=== PATIENT | female | born 1955 | race Caucasian/White ===

== ENCOUNTER 2018-11-28 11:39 | Emergency (ER) | payer OTHER ==
[~2018-11-28] VITALS: Ht 157.5 cm; Wt 70.3 kg
[2018-11-28] MEDS ORDERED: LISINOPRIL20 MG (11:50)
== END 2018-11-28 17:42 | disposition home or self-care (01) ==
LOC: ER 11:39
DX: M25.522 Pain in left elbow (principal); G89.11 Acute pain due to trauma